=== PATIENT | female | born 1975 | race Caucasian/White ===

== ENCOUNTER 2019-02-13 21:40 | Emergency (ER) | payer MEDICAID, MEDICARE ==
[~2019-02-13] VITALS: Ht 162.6 cm; Wt 58.1 kg
[2019-02-13 22:02] VITALS: BP_SYST 136
--- NOTE | 2019-02-13 22:07 | NUR ---
Patient triaged and placed in waiting room. VSS and patient appears in no acute distress at this time. Accompanied by family, awaiting available bed, and MD notified of need for MSE.
--- NOTE | 2019-02-13 22:15 | NUR ---
Pt C/O burning on urination and rt flank pain radiating to the lower abdomen x 2 days. Reports blood in the urine. Denies N/V/D, or any other symptoms at this time. Vital signs are stable, will continue to monitor.
--- NOTE | 2019-02-13 22:30 | NUR ---
MANISH Joseph at bedside examining patient.
[2019-02-13 23:18] LABS: BASOPHILS # (AUTO) 0.1 K/uL (0.0-0.2); BASOPHILS % (AUTO) 0.5 % (0.0-2.0); EOSINOPHILS # (AUTO) 0.1 K/uL (0.0-0.4); EOSINOPHILS % (AUTO) 0.5 % (0.0-4.0); HEMATOCRIT 37.9 % (36-48); HEMOGLOBIN 12.6 g/dL (12.0-16.0); LYMPHOCYTES # (AUTO) 2.7 K/uL (1.0-5.5); MEAN CORPUSCULAR HEMOGLOBIN 30 pg (27-31); MEAN CORPUSCULAR HGB CONC 33 % (32-36); MEAN CORPUSCULAR VOLUME 90 fL (79.0-98.0); MONOCYTES # (AUTO) 0.7 K/uL (0.0-1.0); MONOCYTES % (AUTO) 5.3 % (1.7-9.3); NEUTROPHILS # (AUTO) 8.9 K/uL (1.8-7.7); NEUTROPHILS % (AUTO) 71.7 % (40.0-70.0); PLATELET COUNT (AUTO) 260 K/uL (130-430); RED BLOOD CELL COUNT(AUTO) 4.22 MIL/uL (4.2-6.2); WHITE BLOOD COUNT (AUTO) 12.4 K/uL (4.8-10.8)
--- NOTE | 2019-02-13 23:23 | NUR ---
Patient to ER bed 03 for evaluation. Side rails up.
[2019-02-13 23:33] LABS: CALCIUM 9.6 mg/dL (8.4-11.0); CREATININE 0.79 mg/dL (0.55-1.30); POTASSIUM 4.5 mmol/L (3.5-5.1)
[2019-02-13 23:38] LABS: ALBUMIN 3.5 g/dL (3.4-4.8); TOTAL BILIRUBIN 0.3 mg/dL (0.0-1.0)
[2019-02-13] MEDS ORDERED: MORPHINE 4 MG/ML INJ. SYRINGE IVP ONE (23:45)
[2019-02-13] MEDS ORDERED: ONDANSETRON HCL 4 MG/2 ML VIAL IVP ONE (23:45)
[2019-02-13 23:47] LABS: BILIRUBIN,URINE NEGATIVE (NEGATIVE); BLOOD, URINE 3+ (NEGATIVE); CLARITY/URINE CLEAR (CLEAR); COLOR,URINE YELLOW (YELLOW); GLUCOSE,URINE NEGATIVE (NEGATIVE); KETONES,URINE TRACE (NEGATIVE); LEUKOCYTE ESTERASE ,URINE 1+ (NEGATIVE); NITRITE, URINE NEGATIVE (NEGATIVE); PH,URINE 5.5 (5.0-8.0); PROTEIN URINE NEGATIVE (NEGATIVE); UROBILINOGEN,URINE 0.2 (0.2-1.0)
[2019-02-13 23:52] LABS: BACTERIA,URINE FEW /HPF (None Seen)
--- NOTE | 2019-02-14 00:05 | NUR ---
# 20 gauge angiocath placed to LT AC. Use of asceptic technique. Opsite placed over site. Blood return noted. Blood for lab drawn from site. Flushed with 10 cc of normal saline. No evidence of infiltration noted. Patient tolerated well.
[2019-02-14] MEDS ORDERED: cefTRIAXone 1 GM IVPB PREMIX 50 ML IV ONE (01:00)
--- NOTE | 2019-02-14 01:00 | NUR ---
Pt states no pain after the Morphine, just a throbbing. Also reports she passed a stone while using the restroom. MANISH LARA notified
--- NOTE | 2019-02-14 02:00 | NUR ---
Pt is resting quietly in bed, no acute distress noted at this time. Antibiotics given with no complications. Will continue to monitor
[2019-02-14 02:26] VITALS: BP_SYST 109
--- NOTE | 2019-02-14 02:28 | NUR ---
Patient given written and verbal discharge instructions and verbalizes understanding. ER MD discussed with patient the results and treatment provided. Patient in stable condition. ID arm band removed. IV catheter removed intact and dressing applied, no active bleeding. Rx of Cipro and Otis given. Patient educated on pain management and to follow up with PMD. Pain Scale 0. Opportunity for questions provided and answered. Medication side effect fact sheet provided.
== END 2019-02-14 02:26 | disposition home or self-care (01) ==
LOC: SED 21:40
DX: N20.0 Calculus of kidney (principal); N39.0 Urinary tract infection, site not specified
CPT/HCPCS: 36415; 74176; 80053; 81000; 81025; 83690; 85025; 87040; 87086; 96365; 96375; 99284; J0696; J2270; J2405